=== PATIENT | female | born 1980 | race Two or more races ===

== ENCOUNTER 2023-09-11 21:09 | Inpatient (IN) | payer BC, OTHER ==
[~2023-09-11] VITALS: Ht 157.5 cm; Wt 60.5 kg
[2023-09-11 23:47] LABS: Urine Bacteria FEW /hpf (None Seen); Urine Blood Negative /uL (Negative); Urine Clarity Ex.Turbid (Clear); Urine Color Light-Orange (Yellow); Urine Mucus FEW (None Seen); Urine Protein, UAD 1+ (Negative); Urine Specific Gravity 1.026 (1.001-1.035); Urine Urobilinogen Normal (Negative); Urine WBC 4 /hpf (0 - 5); Urine pH 8.5 (5.0-9.0)
[2023-09-12] VITALS (9 sets, daily range): BP systolic 118–138; BP diastolic 59–81; PULSE 60–80; RESP 14–20; TEMP 97.7–98.5; O2SAT 96–99
[2023-09-12] MEDS: HYDROcodone-ACET 10/325MG TAB PO ONE (00:50)
[2023-09-12] MEDS: ONDANSETRON ODT 4 MG TAB PO ONE (00:51)
[2023-09-12 00:54] LABS: Basophils # (auto) 0 10 ^3/uL (0-0.2); Basophils % (auto) 0.3 % (0.0-2.0); Eosinophils # (auto) 0 10 ^3/uL (0-0.8); Hematocrit 38.7 % (36.0-46.0); Hemoglobin 12.7 g/dL (12.2-16.2); Lymphocytes % (auto) 7.4 % (10.0-50.0); Mean Corpuscular Hemoglobin 28.4 pg (28.0-32.0); Mean Corpuscular Hgb Conc. 32.8 g/dL (32.0-36.0); Mean Corpuscular Volume 86.6 fL (80.0-100.0); Monocytes # (auto) 0.4 10 ^3/uL (0-1.3); Monocytes % (auto) 2.7 % (0.0-12.0); Neutrophils # (auto) 11.6 10 ^3/uL (1.6-8.6); Neutrophils % (auto) 89.6 % (37.0-80.0); Red Blood Cells 4.48 10^6/uL (4.0-5.20); Red Cell Distribution Width 16.1 % (11.8-14.3)
[2023-09-12 01:03] LABS: Chloride 106 mmol/L (98-107); Sodium 138 mmol/L (136-145)
[2023-09-12 01:04] LABS: Anion Gap 9 (5-15); Carbon Dioxide 23 mmol/L (20-30)
[2023-09-12 01:05] LABS: Calcium 10.3 mg/dL (8.7-10.4)
[2023-09-12 01:10] LABS: BUN/Creatinine Ratio 9.8 (10.0-20.0); Blood Urea Nitrogen 9 mg/dL (9-23); Glucose 145 mg/dL (74-106); Lipase 35 U/L (12-53)
[2023-09-12] MEDS ORDERED: ZOFR4T PO (01:50)
[2023-09-12] MEDS ORDERED: DICY10CA PO (01:50)
[2023-09-12] MEDS: SODIUM CHLORIDE 0.9% 1,000 ML IV ONE (03:13)
[2023-09-12] MEDS: HYDROmorphone HCL 2 MG/ML VL/or syr IM ONE (03:13)
[2023-09-12] MEDS ORDERED: ACETAMINOPHEN 325 MG TAB PO PRN (03:30)
[2023-09-12] MEDS: cefTRIAXone 1GM/50ML D5W 50 ML IV SCH (09:49)
[2023-09-12] MEDS: HYDROcodone-ACET 5/325MG TAB PO PRN (09:49)
[2023-09-12] MEDS: MANNITOL FTV 25% 12.5 GM/50 ML 50 ML IV ONE (15:00)
[2023-09-13] VITALS (7 sets, daily range): BP systolic 111–137; BP diastolic 67–74; PULSE 61–100; RESP 16–18; TEMP 97.6–98.6; O2SAT 96–100
[2023-09-13] MEDS: MORPHINE SULFATE INJ 2 MG/ml SYRG IV PRN (06:06)
[2023-09-13 07:01] LABS: Chloride 108 mmol/L (98-107); Potassium 3.8 mmol/L (3.5-5.1); Sodium 140 mmol/L (136-145)
[2023-09-13 07:02] LABS: Anion Gap 3 (5-15); Calcium 9.2 mg/dL (8.5-10.1); Carbon Dioxide 29 mmol/L (20-30)
[2023-09-13 07:07] LABS: BUN/Creatinine Ratio 12.9 (10.0-20.0); Blood Urea Nitrogen 9 mg/dL (9-23); Glucose 85 mg/dL (74-106)
[2023-09-13 07:16] LABS: Hematocrit 36.5 % (36.0-46.0); Hemoglobin 12.2 g/dL (12.2-16.2); Mean Corpuscular Hemoglobin 28.5 pg (28.0-32.0); Mean Corpuscular Hgb Conc. 33.4 g/dL (32.0-36.0); Mean Corpuscular Volume 85.5 fL (80.0-100.0); Red Blood Cells 4.27 10^6/uL (4.0-5.20); Red Cell Distribution Width 15.5 % (11.8-14.3); White Blood Cell 6.2 10^3/uL (4.4-10.8)
[2023-09-13 07:18] LABS: Basophils % (manual) 0 (0.0-2.0); Blast Cells 0; Eosinophils % (manual) 0 (0-7); Metamyelocytes % 0; Myelocytes % 0; Promyelocytes % 0; Reactive Lymphocytes 0
[2023-09-13 09:31] LABS: Band Neutrophils % (manual) 1; Lymphocytes % (manual) 47 (10.0-50.0); Monocytes % (manual) 2 (0-12); Platelet Estimate Adequate
[2023-09-13] MEDS: ONDANSETRON HCL 4 MG/2 ML VIAL IV PRN (21:01)
[2023-09-14 01:00] VITALS: BP 115/68; PULSE 69; RESP 18; TEMP 98.2; O2SAT 97
[2023-09-14 05:00] VITALS: BP 117/64; PULSE 61; RESP 20; TEMP 98; O2SAT 96
[2023-09-14 07:47] VITALS: BP 123/68; PULSE 68; RESP 20; TEMP 98; O2SAT 99
[2023-09-14] MEDS ORDERED: LEVO500T91 PO (11:58)
[2023-09-14] MEDS ORDERED: HYDR-4902 PO (11:58)
[2023-09-14 12:08] VITALS: BP 120/72; PULSE 69; RESP 20; TEMP 98.4; O2SAT 99
[2023-09-14 12:34] VITALS: BP 120/72; PULSE 69; RESP 20; TEMP 98.4; O2SAT 99
== END 2023-09-14 16:00 | disposition home or self-care (01) | DRG 694 ==
LOC: ER 21:09 → OVERFLOW 09-12 03:28 → EAST 09-12 05:27
PROVIDERS: ADMIT Nurse Practitioner; ATTEND Internal Medicine
DX: N13.2 Hydronephrosis with renal and ureteral calculous obstruction (principal); D72.829 Elevated white blood cell count, unspecified
CPT/HCPCS: 36415; 74176; 80048; 81001; 83690; 85007; 85025; 85027; 96360; 96372; G0378; J2405; Q0162